=== PATIENT | female | born 1960 | race Caucasian/White ===

== ENCOUNTER 2019-07-17 10:25 | Emergency (ER) | payer MEDICARE ==
[~2019-07-17] VITALS: Ht 154.9 cm; Wt 101.0 kg
[2019-07-17 10:38] VITALS: BP 160/118
--- NOTE | 2019-07-17 10:45 | PHYS DOC ---
Adult General Chief Complaint Chief Complaint: BLOOD SUGAR PROBLEM [facility] Patient is a 58 year old who presents with high blood sugar. The patient was sent over by the [employer] because they said her blood sugar was over 300. The patient's blood sugar on arrival to the ER was 296. She denies any other complaints with the exception of hunger. Complete ROS were reviewed and found to be within normal limits, except as do cumented in the HPI Physical Exam Physical Exam Constitutional: Well developed, well nourished, no acute distress, non-toxic appearance. [] Neurologic: Alert and oriented X 3, normal motor function, normal sensory function, no focal deficits noted. [] Psychologic: Affect normal, judgement normal, mood normal. [] Current Patient Data Lab Values Laboratory Tests Test 07/17/19 10:36 Glucose (Fingerstick) 296 mg/dL (70-99) H EKG EKG [] Radiology/Procedures Radiology/Procedures [] Course & Med Decision Making Course & Med Decision Making Pertinent Labs and Imaging studies reviewed. (See chart for details) Discussed with the patient that this needs to be followed up with an outpatient primary care doctor (Vinh). Discussed that we do not emergently treat blood sugars in that range as it is better managed on an outpatient basis. Also discussed the risk of us treating this in the ER and then her going home and becoming hypoglycemic. The patient verbalized that she will follow-up with her primary care doctor. The patient is denied any additional complaints will discharge the patient home at this time. Dragon Disclaimer Dragon Disclaimer This electronic medical record was generated, in whole or in part, using a voice recognition dictation system. Departure Departure Impression: Primary Impression: Hyperglycemia Additional Impression: Encounter for medical screening examination Disposition: HOME, SELF-CARE Condition: STABLE Patient Instructions: Hyperglycemia Additional Instructions: Thank you for visiting [facility]. We appreciate you trusting us with your care. If any additional problems come up don't hesitate to return to visit us. Please follow up with your primary care provider so they can plan additional care if needed and know about the problem that you had. If symptoms worsen come back to the Emergency Department. Any concerning symptoms that start such as chest pain, shortness of air, weakness or numbness on one side of the body, running high fevers or any other concerning symptoms return to the ER. Problem Qualifiers KEYA JOHNSON APRN Jul 17, 2019 10:45
== END 2019-07-17 11:06 | disposition home or self-care (01) ==
LOC: ER 10:25
DX: R73.9 Hyperglycemia, unspecified (principal)
CPT/HCPCS: 82962; 99283